=== PATIENT | female | born 1965 | race Caucasian/White ===

== ENCOUNTER → 2016-09-28 | Outpatient (CLI) | payer MEDICARE ==
[2016-09-28 13:10] LABS: Blood Urea Nitrogen 17 mg/dL (7-17); Non-African American GFR(MDRD) >60 (>60 ml/min/1.73 sqM)
== END | disposition home or self-care (01) ==
LOC: LABWHC1 12:39
PROVIDERS: ATTEND Psychiatry & Neurology Pain Medicine
DX: R41.3 Other amnesia (principal)
CPT/HCPCS: 36415; 82565; 84520

== ENCOUNTER → 2017-02-08 | Outpatient (CLI) | payer MEDICARE | END | disposition home or self-care (01) | LOC: LABWHC1 12:38 | PROVIDERS: ATTEND Internal Medicine | DX: E04.2 Nontoxic multinodular goiter (principal); R73.9 Hyperglycemia, unspecified | CPT/HCPCS: 36415; 83036; 84439; 84443 ==

== ENCOUNTER → 2017-03-09 | Outpatient (CLI) | payer MEDICARE ==
--- NOTE | 2017-03-09 11:56 | US ---
EXAMINATION TYPE: US thyroid st tissue head/neck DATE OF EXAM: 03/09/2017 COMPARISON: US 2015 CLINICAL HISTORY: E04.2 Nontoxic Multinodular Goiter. GLAND SIZE: Right Lobe: 6.1 x 3.5 x 2.1 cm Overall Parenchyma: homogenous Left Lobe: 5.0 x 2.0 x 1.5 cm Overall Parenchyma: homogeneous Isthmus Thickness: 0.3 cm NODULES RIGHT: # of nodules measured on right: 1 1. 3.7 X 2.4 x 2.0 cm isoechoic nodule at the mid and lower pole with well-defined margins; . This nodule is wider than tall and shows no intranodular vascularity. Prior size: 3.5 x 2.1 x 3.5 cm LEFT: # of nodules measured on the left: 2 1. 0.7 X 0.7 x 0.6 cm hypoechoic mixed nodule at the mid medial pole with well-defined margins; in terrupted peripheral calcification. This nodule is wider than tall and shows no intranodular vascula rity. Prior size: 0.9 x 0.5 x 0.8 cm 2. 0.7 X 0.6 x 0.6 cm hypoechoic mixed nodule at the mid lower pole with poorly defined margins; . This nodule is wide as is tall and shows no intranodular vascularity. Prior size: 0.7 x 0.4 x 0.6 cm ISTHMUS: no nodules seen at isthmus Bilateral neck scanned, no evidence of lymphadenopathy. IMPRESSION: 1. Multinodular goiter 2. No suspicious enlarging nodules.
== END | disposition home or self-care (01) ==
LOC: RADUSWWP 10:57
PROVIDERS: ATTEND Internal Medicine
DX: E04.2 Nontoxic multinodular goiter (principal)
CPT/HCPCS: 76536

== ENCOUNTER → 2017-11-15 | Outpatient (CLI) | payer MEDICARE ==
[2017-11-15 13:38] LABS: ALT 30 U/L (9-52); AST 32 U/L (14-36); Albumin 3.5 g/dL (3.5-5.0); Alkaline Phosphatase 78 U/L (38-126); Anion Gap 11 mmol/L; Blood Urea Nitrogen 23 mg/dL (7-17); Carbon Dioxide 26 mmol/L (22-30); Chloride 103 mmol/L (98-107); Glucose 147 mg/dL (74-99); Potassium 4.4 mmol/L (3.5-5.1); Sodium 140 mmol/L (137-145); Total Bilirubin 0.3 mg/dL (0.2-1.3); Total Protein 6.5 g/dL (6.3-8.2)
[2017-11-15 13:56] LABS: T4, Free (Free Thyroxine) 0.92 ng/dL (0.78-2.19)
[2017-11-15 14:03] LABS: Appearance,Urine Clear (Clear); Bilirubin,Urine Negative (Negative); Blood,Urine Negative (Negative); Color,Urine Yellow; Glucose,Urine (UA) Negative (Negative); Ketones,Urine Negative (Negative); Leukocyte Esterase,Urine Negative (Negative); Nitrite,Urine Negative (Negative); Protein,Urine Trace (Negative); Specific Gravity,Urine 1.023 (1.001-1.035); Urobilinogen,Urine <2.0 mg/dL (<2.0)
[2017-11-15 18:34] LABS: Vitamin D 25 Hydroxy 26.3 ng/mL (30.0-100.0)
[2017-11-15 19:48] LABS: Parathyroid Hormone Intact 67.5 pg/mL (14.0-72.0)
== END | disposition home or self-care (01) ==
LOC: LABWHC1 12:35
PROVIDERS: ATTEND Internal Medicine Infectious Disease
DX: N39.0 Urinary tract infection, site not specified (principal); E55.9 Vitamin D deficiency, unspecified; M81.0 Age-related osteoporosis without current pathological fracture; R94.6 Abnormal results of thyroid function studies
CPT/HCPCS: 36415; 80053; 81003; 82306; 83970; 84439; 84443; 84481; 87086

== ENCOUNTER 2018-05-17 22:40 | Observation (INO) | payer MEDICARE ==
[2018-05-17 23:45] LABS: Basophils % (A) 0 %; Eosinophils % (A) 1 %; HCT 40.7 % (34.0-46.0); HGB 13.2 gm/dL (11.4-16.0); Lymphocytes # (A) 1.3 k/uL (1.0-4.8); Lymphocytes % (A) 21 %; MCH 28.9 pg (25.0-35.0); MCHC 32.3 g/dL (31.0-37.0); MCV 89.5 fL (80.0-100.0); Mean Platelet Volume 6.8; Monocytes # (A) 0.5 k/uL (0-1.0); Monocytes % (A) 7 %; Neutrophils # (A) 4.3 k/uL (1.3-7.7); Neutrophils % (A) 68 %; Platelet Count 295 k/uL (150-450); RBC 4.55 m/uL (3.80-5.40); RDW 14.4 % (11.5-15.5); WBC 6.3 k/uL (3.8-10.6)
--- NOTE | 2018-05-17 23:50 | XR ---
EXAMINATION TYPE: XR chest 2V DATE OF EXAM: 05/17/2018 COMPARISON: 06/21/2016 HISTORY: Atrial fibrillation chest pain TECHNIQUE: Frontal and lateral views of the chest are obtained. FINDINGS: There is poor aspiration. There is coarsening of the lung markings. I see no definite hear t failure. Costophrenic angles are clear. Heart size is normal. There are chest leads. IMPRESSION: Coarse lung markings related to poor inspiration. No heart failure or pulmonary consolid ation. Inspiration is decreased compared to last exam.
[2018-05-17 23:57] LABS: Partial Thromboplastin Time 23.7 sec (22.0-30.0); Prothrombin Time 9.6 sec (9.0-12.0)
[2018-05-17 23:59] LABS: ALT 30 U/L (9-52); AST 36 U/L (14-36); Albumin 3.7 g/dL (3.5-5.0); Alkaline Phosphatase 80 U/L (38-126); Anion Gap 7 mmol/L; Blood Urea Nitrogen 12 mg/dL (7-17); Carbon Dioxide 24 mmol/L (22-30); Chloride 110 mmol/L (98-107); Glucose 106 mg/dL (74-99); Lipase 159 U/L (23-300); Magnesium 2.4 mg/dL (1.6-2.3); Potassium 4.3 mmol/L (3.5-5.1); Sodium 141 mmol/L (137-145); Total Bilirubin 0.3 mg/dL (0.2-1.3); Total Protein 6.7 g/dL (6.3-8.2)
[2018-05-18 00:09] LABS: Creatine Kinase 289 U/L (30-135)
[2018-05-18 00:21] LABS: Creatine Kinase MB 3.4 ng/mL (0.0-2.4)
[2018-05-18 00:22] LABS: Troponin I <0.012 ng/mL (0.000-0.034)
[2018-05-18] MEDS ORDERED: ASPIRIN 81 MG PO STA (00:33)
[2018-05-18] MEDS ORDERED: NITROGLYCERIN SL TABS 0.4 MG TAB SUBLINGUAL PRN (00:33)
[2018-05-18] MEDS ORDERED: HEPARIN SODIUM,PORCINE 5,000 UNIT/ML 1 ML VIAL IV ONE (00:33)
[2018-05-18] MEDS ORDERED: HEPARIN SODIUM,PORCINE 5,000 UNIT/ML 1 ML VIAL IV PRN (00:33)
--- NOTE | 2018-05-18 00:33 | ED ---
Chest Pain HPI - General Chief Complaint: Chest Pain Stated Complaint: chest pain Time Seen by Provider: 05/17/18 22:54 Source: patient, EMS, RN notes reviewed, old records reviewed Limitations: no limitations - History of Present Illness Initial Comments: This is a 32-year-old female the ER for evasive chest pain. Patient has significant medical history multiple medical conditions including heart disease or heart disease risk factors. did take nitro with no help. Patient still complaining of left-sided chest. No radiation. No nausea no vomiting. No fevers no cough or congestion. No recent travel history no known sick contacts. Patient has history of multiple hospitalizations for same. Patient is also experiencing significant increasing exertional dyspnea. MD Complaint: chest pain -: hour(s) (Pain is been getting worse throughout the day and shortness of breath worse throughout the day but symptoms going on for almost a week) Onset: during rest, during exertion Pain Location: substernal, left chest Pain Radiation: none Severity: moderate Severity scale (1-10): 4 Quality: tightness, heaviness Consistency: constant Improves With: nothing Worsens With: exertion Anginal Symptoms: dyspnea Treatments Prior to Arrival: none - Related Data Home Medications Medication Instructions Recorded Confirmed Metoprolol Tartrate [Lopressor] 25 mg PO DAILY 01/09/14 05/17/18 predniSONE 10 mg PO DAILY 04/05/16 05/17/18 Baclofen 10 mg PO TID 06/21/16 05/17/18 Docusate [Colace] 100 mg PO DAILY PRN 06/21/16 05/17/18 Nitroglycerin Sl Tabs [Nitrostat] 0.4 mg PO Q5M PRN 06/21/16 05/17/18 lamoTRIgine [LaMICtal] 100 mg PO HS 06/21/16 05/17/18 Nystatin 100,000 Unit/ml Susp 4 ml PO QID 09/07/16 05/17/18 [Mycostatin Oral Susp] oxyCODONE ER [OxyCONTIN 20MG E.R] 20 mg PO Q12HR PRN 09/07/16 05/17/18 Albuterol Sulfate [Proventil Hfa] 1 - 2 puff INHALATION RT-Q6H PRN 12/07/1604/26 Beclomethasone Dip 80 Mcg/Puff 1 puff INHALATION DAILY 12/07/16 05/17/18 [Qvar 80 mcg] Ranitidine HCl [Zantac] 150 mg PO BID PRN 12/07/16 05/17/18 LORazepam [Ativan] 0.5 mg PO TID PRN 04/23/17 05/17/18 Naloxegol Oxalate [Movantik] 6 mg PO ONCE 06/01/17 05/17/18 Acetaminophen [Tylenol] 1,000 mg PO Q4-6H PRN 05/17/18 05/17/18 Citalopram Hydrobromide [CeleXA] 40 mg PO DAILY 05/17/18 05/17/18 diphenhydrAMINE [Benadryl] 50 mg PO DAILY PRN 05/17/18 05/17/18 Previous Rx's Medication Instructions Recorded QUEtiapine [SEROquel] 400 mg PO HS tab 09/03/15 HYDROcodone/APAP 7.5-325MG [[place] 1 tab PO BID PRN #28 tab 06/24/16 7.5-325] Allergies Allergy/AdvReac Type Severity Reaction Status Date / Time Anesthetics - Jocelyn Type- Allergy Unknown Verified 05/17/18 23:26 Parabens [Anesthetics - Jocelyn Type] bumetanide [From Bumex] Allergy Rash/Hives Verified 05/17/18 23:26 Cephalosporins Allergy Rash/Hives Verified 05/17/18 23:26 clindamycin Allergy Rash/Hives Verified 05/17/18 23:26 diphenhydramine Allergy Rash/Hives Verified 05/17/18 23:26 [From Benadryl] doxycycline Allergy Anaphylaxis Verified 05/17/18 23:26 egg Allergy Anaphylaxis Verified 05/17/18 23:26 furosemide [From Lasix] Allergy Rash/Hives Verified 05/17/18 23:26 hydrochlorothiazide Allergy Rash/Hives Verified 05/17/18 23:26 influenza virus vaccine, Allergy Anaphylaxis Verified 05/17/18 23:26 specific [Influenza Virus Vacc,Specific] Latex, Natural Rubber Allergy Anaphylaxis Verified 05/17/18 23:26 levofloxacin [From Levaquin] Allergy Anaphylaxis Verified 05/17/18 23:26 NSAIDS (Non-Steroidal Allergy Rash/Hives Verified 05/17/18 23:26 Anti-Inflamma Penicillins Allergy Anaphylaxis Verified 05/17/18 23:26 pneumococcal 23-valent Allergy Anaphylaxis Verified 05/17/18 23:26 polysacchari [From Pneumovax 23] propoxyphene HCl Allergy Rash/Hives Verified 05/17/18 23:26 [From Darvon] Sulfa (Sulfonamide Allergy Anaphylaxis Verified 05/17/18 23:26 Antibiotics) torsemide [From Demadex] Allergy Rash/Hives Verified 05/17/18 23:26 tramadol HCl [From Ultram] Allergy Rash/Hives Verified 05/17/18 23:26 triamterene [From Dyazide] Allergy Anaphylaxis Verified 05/17/18 23:26 vancomycin Allergy Rash/Hives Verified 05/17/18 23:26 adhesive AdvReac Rash/Hives Verified 05/17/18 23:26 formoterol [Formoterol] AdvReac Unknown Verified 05/17/18 23:26 Macrolide Antibiotics AdvReac Nausea & Verified 05/17/18 23:26 Vomiting Milk Containing Products AdvReac Rash/Hives Verified 05/17/18 23:26 pregabalin [From Lyrica] AdvReac Hallucinati Verified 05/17/18 23:26 ons propofol AdvReac Unknown Verified 05/17/18 23:26 metals AdvReac Unknown Uncoded 04/19/18 11:08 Review of Systems ROS Statement: Those systems with pertinent positive or pertinent negative responses have been documented in the HPI. ROS Other: All systems not noted in ROS Statement are negative. EKG Findings - EKG Comments: EKG Findings:: EKG shows normal sinus rhythm rate of 92, FL 150, QRS 84, QTC 487 Past Medical History Past Medical History: Atrial Fibrillation, Asthma, Chest Pain / Angina, COPD, CVA/TIA, Dementia, Diabetes Mellitus, Deep Vein Thrombosis (DVT), Eye Disorder, Fibromyalgia, GERD/Reflux, GI Bleed, Hyperlipidemia, Hypertension, Memory Impairment, Myocardial Infarction ([place]), Neurologic Disorder, Skin Disorder, Sleep Apnea/CPAP/BIPAP, Syncope, Vascular Disorder Additional Past Medical History / Comment(s): VERTIBRAL FX T-12/L1-L5/ILIAC FX BILAT PARTIALLY HEALED/VASCULITIS/IRRITABLE BOWEL SYNDROME/CELLULITIS TO ARMS, Lupus, BILATERAL CATARACTS 2014 LEFT SHOULDER AVASCULOAR NECROSIS, osteoporois , CVID ON IVIG infusions, osteomyelitis L1. Aseptic necrosis - right femoral head Brain lesion and old bleed MRI - Winter 2016. FUNGAL FOOT NAILBED INFECTION. TOOTH INFECTION AND VAGINAL YEAST INFECTION. Last Myocardial Infarction Date:: 1989 History of Any Multi-Drug Resistant Organisms: MRSA, VRE Date of last positivie culture/infection: 01/28/16 MDRO Source:: URINE Past Surgical History: Adenoidectomy, Ear Surgery, Heart Catheterization, Hernia Repair, Orthopedic Surgery, Tonsillectomy Additional Past Surgical History / Comment(s): NIYAH FILTER. SINUS SURGERY. Past Anesthesia/Blood Transfusion Reactions: Motion Sickness, Postoperative Nausea & Vomiting (PONV) Past Psychological History: Anxiety, Bipolar, Depression, PTSD Smoking Status: Never smoker Past Alcohol Use History: None Reported Past Drug Use History: Prescription Drug Abuse - Past Family History Mother Family Medical History: Hypertension, Thyroid Disorder Father Family Medical History: Myocardial Infarction ([place]) Additional Family Medical History / Comment(s): significant other states father of heart attack, and had other heart problems General Exam Limitations: no limitations General appearance: alert, in no apparent distress Head exam: Present: atraumatic, normocephalic, normal inspection Eye exam: Present: normal appearance, PERRL, EOMI. Absent: scleral icterus, conjunctival injection, periorbital swelling ENT exam: Present: normal exam, mucous membranes moist Neck exam: Present: normal inspection. Absent: tenderness, meningismus, lymphadenopathy Respiratory exam: Present: normal lung sounds bilaterally. Absent: respiratory distress, wheezes, rales, rhonchi, stridor Cardiovascular Exam: Present: regular rate, normal rhythm, normal heart sounds. Absent: systolic murmur, diastolic murmur, rubs, gallop, clicks GI/Abdominal exam: Present: soft, normal bowel sounds. Absent: distended, tenderness, guarding, rebound, rigid Extremities exam: Present: normal inspection, full ROM, normal capillary refill. Absent: tenderness, pedal edema, joint swelling, calf tenderness Back exam: Present: normal inspection Neurological exam: Present: alert, oriented X3, CN II-XII intact Psychiatric exam: Present: normal affect, normal mood Skin exam: Present: warm, dry, intact, normal color. Absent: rash Course Vital Signs 05/17/18 22:40 Temperature 99.4 F Pulse Rate 89 Respiratory 16 Rate Blood Pressure 130/81 O2 Sat by Pulse 100 Oximetry - Reevaluation(s) Reevaluation #1: 10/10/18 00:31 Medical records thoroughly reviewed, Reevaluation #2: 05/18/18 00:31 Patient still complaining of chest pain here in the ER Reevaluation #3: 05/18/18 00:32 Studies Chest x-rays negative for significant acute disease, increased only rest or congestion or increased lung markings Chest Pain MDM - MDM 52 female the ER for evaluation of chest pain not relieved by nitro does have significant medical history with multiple cardiac Camacho's. Will be admitted for cardiac evaluation and treatment Critical Care Time Critical Care Time: Yes Total Critical Care Time: 31 Disposition Clinical Impression: Chest pain Disposition: ADMITTED IP TO THIS HOSP Condition: Undetermined Instructions: Chest Pain (ED) Is patient prescribed a controlled substance at d/c from ED?: No Referrals: Eulalio Acosta MD [Primary Care Provider] - 1-2 days
[2018-05-18] MEDS ORDERED: SODIUM CHLORIDE 0.9% 1,000 ML IV SCH (00:45)
[2018-05-18] MEDS ORDERED: HEPARIN SOD,PORK IN 0.45% NACL 25,000 UNIT in 0.45% NACL 1 500ML.BAG IV SCH (00:45)
[2018-05-18 02:04] VITALS: BMI 33.9
[2018-05-18 07:03] LABS: Glucose,Whole Blood 100 mg/dL (75-99)
[2018-05-18 08:11] VITALS: RESP 18
[2018-05-18] MEDS ORDERED: LORazepam 0.5 MG TAB PO PRN (08:31)
[2018-05-18] MEDS ORDERED: DOCUSATE 100 MG CAP PO PRN (08:31)
[2018-05-18] MEDS ORDERED: ACETAMINOPHEN TAB 500 MG TAB PO PRN (08:31)
[2018-05-18] MEDS ORDERED: ALBUTEROL NEBULIZED 2.5 MG/3 ML INHALATION PRN (08:31)
[2018-05-18] MEDS ORDERED: oxyCODONE ER 20 MG TAB.ER.12H PO PRN (08:31)
[2018-05-18] MEDS ORDERED: FAMOTIDINE 20 MG TAB PO PRN (08:31)
[2018-05-18] MEDS ORDERED: HYDROcodone/APAP 7.5-325MG 1 EACH TAB PO PRN (08:31)
[2018-05-18] MEDS ORDERED: predniSONE 10 MG TAB PO SCH (09:00)
[2018-05-18] MEDS ORDERED: METOPROLOL TARTRATE 25 MG TAB PO SCH (09:00)
[2018-05-18] MEDS ORDERED: BACLOFEN 10 MG TAB PO SCH (09:00)
[2018-05-18] MEDS ORDERED: ATORVASTATIN 80 MG TAB PO SCH (09:00)
[2018-05-18] MEDS ORDERED: CITALOPRAM HYDROBROMIDE 20 MG TAB PO SCH (09:00)
[2018-05-18 10:43] LABS: Mean Platelet Volume 8.3; Platelet Count 261 k/uL (150-450)
[2018-05-18] MEDS: NYSTATIN 100,000 UNIT/ML SUSP 500,000 UNIT/5 ML CUP PO SCH ×2 (11:12→13:39)
[2018-05-18 11:39] LABS: Creatine Kinase 186 U/L (30-135)
[2018-05-18 11:53] LABS: Creatine Kinase MB 2.1 ng/mL (0.0-2.4); Troponin I <0.012 ng/mL (0.000-0.034)
[2018-05-18 12:04] LABS: Creatine Kinase 192 U/L (30-135)
[2018-05-18 12:08] VITALS: BP 110/62; PULSE 80; TEMP 97.6
[2018-05-18 12:17] LABS: Troponin I <0.012 ng/mL (0.000-0.034)
[2018-05-18 12:17] LABS: Glucose,Whole Blood 239 mg/dL (75-99)
--- NOTE | 2018-05-18 13:52 | P.CRDCN ---
History of Present Illness History of present illness: Ms. Leung is a pleasant 52-year-old female past medical history significant for hypertension, dyslipidemia, diabetes mellitus, infective endocarditis 2016, COPD and CVA. She denies history of coronary artery disease. She has followed with Dr. Ronquillo in the past. We have been asked to see her in consultation for chest pain. She states 2 days ago she started coughing very had and intensely. The coughing was causing significant pain in her chest and shortness of breath. She was tolerating this at home until last night when the coughing and the tightness in her chest became unbearable. She states she has nitroglycerin at home and took 3 doses which took away the tightness in her chest but it came back after approximately 40 minutes. Upon arrival to ED she was still having chest tightness. The tightness ultimately went away shortly thereafter on its own. There was mild radiation to the mid upper back between her shoulder blades. She denies pain in the arm, neck or jaw. She denies associated dizziness, palpitations, diaphoresis or nausea. EKG revels sinus mechanism with poor R-wave progression. Consistent with old EKG in the office. No acute changes. Chest xray reveals course lung markings related to poor inspiration. No acute heart failure or pulmonary consolidation noted. Laboratory data reviewed, hgb 13.2, plt 261, sodium 141, potassium 4.3, magnesium 2.4, creatinine 0.62, cardiac enzymes negative x3, NTproBNP 252. Current cardiac medications include lopressor 25 mg daily. She also takes oxycontin, lamictal, seroquel, movantikm ativan, norco, celexa, baclofen and albuterol. Most recent lexiscan stress test in the office 2015 negative for reversible cardiac ischemic changes. Most recent echocardiogram from 2016 reveals preserved LV systolic function with EF 55-60%, mildly thickened mitral valve leaflets and mild TR. Review of Systems At the time of my exam: CONSTITUTIONAL: Denies fever. Denies chills. EYES: Denies blurred vision. Denies vision changes. Denies eye pain. EARS, NOSE, MOUTH & THROAT: Denies headache. Denies sore throat. Denies ear pain. CARDIOVASCULAR: Denies chest pain. Denies shortness of breath. Denies orthopnea. Denies PND. Denies palpitations. RESPIRATORY: complains of cough. GASTROINTESTINAL: Denies abdominal pain. Denies diarrhea. Denies constipation. Denies nausea. Denies vomiting. MUSCULOSKELETAL: Denies myalgias. INTEGUMENTARY: Denies pruitis. Denies rash. NEUROLOGIC: Denies numbness. Denies tingling. Denies weakness. PSYCHIATRIC: Denies anxiety. Denies depression. ENDOCRINE: Denies fatigue. Denies weight change. Denies polydipsia. Denies polyurina. GENITOURINARY: Denies burning, hematuria or urgency with micturation. HEMATOLOGIC: Denies history of anemia. Denies bleeding. Past Medical History Past Medical History: Atrial Fibrillation, Asthma, Chest Pain / Angina, COPD, CVA/TIA, Dementia, Diabetes Mellitus, Deep Vein Thrombosis (DVT), Eye Disorder, Fibromyalgia, GERD/Reflux, GI Bleed, Hyperlipidemia, Hypertension, Memory Impairment, Myocardial Infarction ([place]), Neurologic Disorder, Skin Disorder, Sleep Apnea/CPAP/BIPAP, Syncope, Vascular Disorder Additional Past Medical History / Comment(s): VERTIBRAL FX T-12/L1-L5/ILIAC FX BILAT PARTIALLY HEALED/VASCULITIS/IRRITABLE BOWEL SYNDROME/CELLULITIS TO ARMS, Lupus, BILATERAL CATARACTS 2014 LEFT SHOULDER AVASCULOAR NECROSIS, osteoporois , CVID ON IVIG infusions, osteomyelitis L1. Aseptic necrosis - right femoral head Brain lesion and old bleed MRI - Winter 2016. FUNGAL FOOT NAILBED INFECTION. TOOTH INFECTION AND VAGINAL YEAST INFECTION. Last Myocardial Infarction Date:: 1989 History of Any Multi-Drug Resistant Organisms: MRSA, VRE Date of last positivie culture/infection: 01/28/16 MDRO Source:: URINE Past Surgical History: Adenoidectomy, Ear Surgery, Heart Catheterization, Hernia Repair, Orthopedic Surgery, Tonsillectomy Additional Past Surgical History / Comment(s): NIYAH FILTER. SINUS SURGERY , right breast bx - benign Past Anesthesia/Blood Transfusion Reactions: Motion Sickness, Postoperative Nausea & Vomiting (PONV) Past Psychological History: Anxiety, Bipolar, Depression, PTSD Additional Psychological History / Comment(s): Patient sees Dr Garza on an outpatient basis. Previous history of inpatient mental health admission at [facility]. Smoking Status: Never smoker Past Alcohol Use History: None Reported Additional Past Alcohol Use History / Comment(s): . Past Drug Use History: Prescription Drug Abuse - Past Family History Mother Family Medical History: Hypertension, Thyroid Disorder Father Family Medical History: Myocardial Infarction ([place]) Additional Family Medical History / Comment(s): significant other states father of heart attack, and had other heart problems Medications and Allergies Home Medications Medication Instructions Recorded Confirmed Type Metoprolol Tartrate [Lopressor] 25 mg PO DAILY 01/09/14 05/17/18 History QUEtiapine [SEROquel] 400 mg PO HS tab 09/03/15 05/17/18 Rx predniSONE 10 mg PO DAILY 04/05/16 05/17/18 History Baclofen 10 mg PO TID 06/21/16 05/17/18 History Docusate [Colace] 100 mg PO DAILY PRN 06/21/16 05/17/18 History Nitroglycerin Sl Tabs [Nitrostat] 0.4 mg PO Q5M PRN 06/21/16 05/17/18 History lamoTRIgine [LaMICtal] 100 mg PO HS 06/21/16 05/17/18 History HYDROcodone/APAP 7.5-325MG [[place] 1 tab PO BID PRN #28 tab 06/24/16 05/17/18 Rx 7.5-325] Nystatin 100,000 Unit/ml Susp 4 ml PO QID 09/07/16 05/17/18 History [Mycostatin Oral Susp] oxyCODONE ER [OxyCONTIN 20MG E.R] 20 mg PO Q12HR PRN 09/07/16 05/17/18 History Albuterol Sulfate [Proventil Hfa] 1 - 2 puff INHALATION RT-Q6H PRN 12/07/1604/26 History Beclomethasone Dip 80 Mcg/Puff 1 puff INHALATION DAILY 12/07/16 05/17/18 History [Qvar 80 mcg] Ranitidine HCl [Zantac] 150 mg PO BID PRN 12/07/16 05/17/18 History LORazepam [Ativan] 0.5 mg PO TID PRN 04/23/17 05/17/18 History Naloxegol Oxalate [Movantik] 6 mg PO ONCE 06/01/17 05/17/18 History Acetaminophen [Tylenol] 1,000 mg PO Q4-6H PRN 05/17/18 05/17/18 History Citalopram Hydrobromide [CeleXA] 40 mg PO DAILY 05/17/18 05/17/18 History diphenhydrAMINE [Benadryl] 50 mg PO DAILY PRN 05/17/18 05/17/18 History Allergies Allergy/AdvReac Type Severity Reaction Status Date / Time Anesthetics - Jocelyn Type- Allergy Unknown Verified 05/17/18 23:26 Parabens [Anesthetics - Jocelyn Type] bumetanide [From Bumex] Allergy Rash/Hives Verified 05/17/18 23:26 Cephalosporins Allergy Rash/Hives Verified 05/17/18 23:26 clindamycin Allergy Rash/Hives Verified 05/17/18 23:26 diphenhydramine Allergy Rash/Hives Verified 05/17/18 23:26 [From Benadryl] doxycycline Allergy Anaphylaxis Verified 05/17/18 23:26 egg Allergy Anaphylaxis Verified 05/17/18 23:26 furosemide [From Lasix] Allergy Rash/Hives Verified 05/17/18 23:26 hydrochlorothiazide Allergy Rash/Hives Verified 05/17/18 23:26 influenza virus vaccine, Allergy Anaphylaxis Verified 05/17/18 23:26 specific [Influenza Virus Vacc,Specific] Latex, Natural Rubber Allergy Anaphylaxis Verified 05/17/18 23:26 levofloxacin [From Levaquin] Allergy Anaphylaxis Verified 05/17/18 23:26 NSAIDS (Non-Steroidal Allergy Rash/Hives Verified 05/17/18 23:26 Anti-Inflamma Penicillins Allergy Anaphylaxis Verified 05/17/18 23:26 pneumococcal 23-valent Allergy Anaphylaxis Verified 05/17/18 23:26 polysacchari [From Pneumovax 23] propoxyphene HCl Allergy Rash/Hives Verified 05/17/18 23:26 [From Darvon] Sulfa (Sulfonamide Allergy Anaphylaxis Verified 05/17/18 23:26 Antibiotics) torsemide [From Demadex] Allergy Rash/Hives Verified 05/17/18 23:26 tramadol HCl [From Ultram] Allergy Rash/Hives Verified 05/17/18 23:26 triamterene [From Dyazide] Allergy Anaphylaxis Verified 05/17/18 23:26 vancomycin Allergy Rash/Hives Verified 05/17/18 23:26 adhesive AdvReac Rash/Hives Verified 05/17/18 23:26 aspirin AdvReac Rash/Hives Verified 05/18/18 02:43 formoterol [Formoterol] AdvReac Unknown Verified 05/17/18 23:26 Macrolide Antibiotics AdvReac Nausea & Verified 05/17/18 23:26 Vomiting Milk Containing Products AdvReac Rash/Hives Verified 05/17/18 23:26 pregabalin [From Lyrica] AdvReac Hallucinati Verified 05/17/18 23:26 ons propofol AdvReac Unknown Verified 05/17/18 23:26 metals AdvReac Unknown Uncoded 04/19/18 11:08 Physical Exam Vitals: Vital Signs Temp Pulse Pulse Resp BP BP BP 05/18/18 07:36 05/18/18 07:25 97.7 F 60 18 135/80 05/18/18 04:41 97.4 F L 62 16 128/82 05/18/18 02:21 15 05/18/18 01:35 97.4 F L 63 15 124/74 05/18/18 01:00 98.0 F 68 16 116/70 05/17/18 22:40 99.4 F 89 16 130/81 Pulse Ox 05/18/18 07:36 96 05/18/18 07:25 95 05/18/18 04:41 05/18/18 02:21 05/18/18 01:35 91 L 05/18/18 01:00 100 05/17/18 22:40 100 Intake and Output 05/17/18 05/18/18 05/18/18 22:59 06:59 14:59 Intake Total 180 Balance 180 Intake: Oral 180 Other: Voiding Method Toilet # Voids 2 Weight 95.254 kg 95.254 kg Blood pressure 110/62 heart rate 80 afebrile maintaining oxygen saturation on room air. GENERAL: This is a 52-year-old female in no apparent distress at the time of my examination. Obese. HEENT: Head is atraumatic, normocephalic. Pupils are equal, round. Sclerae anicteric. Conjunctivae are clear. Mucous membranes of the mouth are moist. Neck is supple. There is no jugular venous distention. No carotid bruit is heard. LUNGS: Clear to auscultation no wheezes, rales or rhonchi. No chest wall tenderness is noted on palpation or with deep breathing. HEART: Regular rate and rhythm without murmurs, rubs or gallops. S1 and S2 heard. ABDOMEN: Soft, nontender. Bowel sounds are heard. No organomegaly noted. EXTREMITIES: Trace bilateral lower extremity non-pitting edema and no calf tenderness noted. VASCULAR: Radial and dorsalis pedis pulses palpated, no evidence of clubbing. NEUROLOGIC: Patient is awake, alert and oriented x3. Results 05/18/18 09:36 05/17/18 23:30 Cardiac Enzymes 05/17/18 05/17/18 Range/Units 23:30 23:30 AST 36 (14-36) U/L CK-MB (CK-2) 3.4 H (0.0-2.4) ng/mL Troponin I <0.012 (0.000-0.034) ng/mL Coagulation 05/17/18 Range/Units 23:30 PT 9.6 (9.0-12.0) sec APTT 23.7 (22.0-30.0) sec CBC 05/17/18 Range/Units 23:30 WBC 6.3 (3.8-10.6) k/uL RBC 4.55 (3.80-5.40) m/uL Hgb 13.2 (11.4-16.0) gm/dL Hct 40.7 (34.0-46.0) % Plt Count 295 (150-450) k/uL Comprehensive Metabolic Panel 05/17/18 Range/Units 23:30 Sodium 141 (137-145) mmol/L Potassium 4.3 (3.5-5.1) mmol/L Chloride 110 H (98-107) mmol/L Carbon Dioxide 24 (22-30) mmol/L BUN 12 (7-17) mg/dL Creatinine 0.62 (0.52-1.04) mg/dL Glucose 106 H (74-99) mg/dL Calcium 9.0 (8.4-10.2) mg/dL AST 36 (14-36) U/L ALT 30 (9-52) U/L Alkaline Phosphatase 80 (38-126) U/L Total Protein 6.7 (6.3-8.2) g/dL Albumin 3.7 (3.5-5.0) g/dL Current Medications Generic Name Dose Route Start Last Admin Trade Name Freq PRN Reason Stop Dose Admin Atorvastatin Calcium 80 mg 05/18/18 09:00 Lipitor PO DAILY NESS Heparin Sodium (Porcine) 0 unit 05/18/18 00:33 Heparin IV Q6HR PRN Low PTT Protocol Heparin Sodium/Sodium Chloride 500 mls @ 19.05 mls/hr 05/18/18 00:45 01:11 25,000 unit/ Sodium Chloride IV 10 units/kg/hr .Q24H NESS 19.05 mls/hr Administration Protocol 10 UNITS/KG/HR Sodium Chloride 1,000 mls @ 100 mls/hr 05/18/18 00:45 05/18/18 01:07 Saline 0.9% IV 100 mls/hr .Q10H NESS Administration Nitroglycerin 0.4 mg 05/18/18 00:33 Nitrostat SUBLINGUAL Q5M PRN Chest Pain Intake and Output 05/17/18 05/18/18 05/18/18 22:59 06:59 14:59 Intake Total 180 Balance 180 Intake: Oral 180 Other: Voiding Method Toilet # Voids 2 Weight 95.254 kg 95.254 kg 05/17/18 23:30 05/17/18 23:30 Assessment and Plan Assessment: ASSESSMENT Pleuritic chest pain with cough Hypertension Dyslipidemia Diabetes mellitus History of endocarditis 2016 PLAN An acute coronary event has been ruled out with no acute EKG changes and negative cardiac enzymes. Obtain 2D echocardiogram and doppler study to assess cardiac structure and function. Follow up with Dr. Ronquillo in 2-3 weeks. Will do an outpatient stress test once her coughing has cleared up. Thank you kindly for this consultation. Nurse Practitioner note has been reviewed, I agree with a documented findings and plan of care. Patient was seen and examined.
[2018-05-18] MEDS ORDERED: FLUTICASONE 110 MCG INHALER INHALATION SCH ×2 (14:37→20:00)
[2018-05-18] MEDS ORDERED: guaiFENesin SYRUP 100MG/5ML 200 MG/10 ML CUP PO PRN (14:46)
--- NOTE | 2018-05-18 15:35 | P.HPIM ---
History of Present Illness H&P Date: 05/18/18 This is a 52-year-old female patient of Dr. Acosta with past medical history CVID and has undergone IVIG infusions with Dr. 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 Patient complains of chest pain that goes across from both shoulders and around between her shoulder blades that started while she was in bed resting. She states it lasted for about 20 minutes. She also has significant cough. She came in to [facility] emergency center for evaluation underwent a chest x-ray that showed no acute findings. Troponins have been negative on 3 draws. EKG was sinus rhythm with no acute changes. Patient was started on heparin drip and nitroglycerin. Patient has ALLERGY to aspirin. She was placed on the observation unit and seen in consultation by cardiology. At the time of this evaluation, patient states her chest pain is substantially improved. Patient has been seen by cardiology and cleared for discharge. Patient will be discharged home today in stable condition. Echocardiogram has been obtained and report is pending at the time of discharge. Discharge Medication List Metoprolol Tartrate [Lopressor] 25 mg PO DAILY 01/09/14 [History] QUEtiapine [SEROquel] 400 mg PO HS tab 09/03/15 [Rx] predniSONE 10 mg PO DAILY 04/05/16 [History] Baclofen 10 mg PO TID 06/21/16 [History] Docusate [Colace] 100 mg PO DAILY PRN 06/21/16 [History] Nitroglycerin Sl Tabs [Nitrostat] 0.4 mg PO Q5M PRN 06/21/16 [History] lamoTRIgine [LaMICtal] 100 mg PO HS 06/21/16 [History] HYDROcodone/APAP 7.5-325MG [Seymour 7.5-325] 1 tab PO BID PRN #28 tab 06/24/16 [Rx ] Nystatin 100,000 Unit/ml Susp [Mycostatin Oral Susp] 4 ml PO QID 09/07/16 [ History] oxyCODONE ER [OxyCONTIN] 20 mg PO Q12HR PRN 09/07/16 [History] Albuterol Sulfate [Proventil Hfa] 1 - 2 puff INHALATION RT-Q6H PRN 12/07/16 [ History] Beclomethasone Dip 80 Mcg/Puff [Qvar 80 mcg] 1 puff INHALATION DAILY 12/07/16 [ History] Ranitidine HCl [Zantac] 150 mg PO BID PRN 12/07/16 [History] LORazepam [Ativan] 0.5 mg PO TID PRN 04/23/17 [History] Naloxegol Oxalate [Movantik] 6 mg PO ONCE 06/01/17 [History] Acetaminophen [Tylenol] 1,000 mg PO Q4-6H PRN 05/17/18 [History] Citalopram Hydrobromide [CeleXA] 40 mg PO DAILY 05/17/18 [History] diphenhydrAMINE [Benadryl] 50 mg PO DAILY PRN 05/17/18 [History] guaiFENesin SYRUP 100MG/5ML [Robitussin] 10 mg PO BID #1 bottle 05/18/18 [Rx] Review of Systems All systems: negative Constitutional: Denies chills, Denies fever, Denies poor appetite, Denies sweats Eyes: denies blurred vision, denies pain Ears, nose, mouth and throat: Denies headache, Denies sore throat, Denies vertigo Cardiovascular: Reports chest pain, Denies decreased exercise tolerance, Denies dyspnea on exertion, Denies edema, Denies leg edema, Denies lightheadedness, Denies shortness of breath, Denies syncope Respiratory: Denies cough, Denies cough with sputum, Denies dyspnea, Denies excessive sputum, Denies hemoptysis, Denies home oxygen, Denies wheezing Gastrointestinal: Denies abdominal pain, Denies diarrhea, Denies nausea, Denies vomiting Genitourinary: Denies dysuria, Denies hematuria Musculoskeletal: Denies myalgias Integumentary: Denies pruritus, Denies rash Neurological: Denies numbness, Denies weakness Psychiatric: Denies anxiety, Denies depression Endocrine: Denies fatigue, Denies weight change Past Medical History Past Medical History: Atrial Fibrillation, Asthma, Chest Pain / Angina, COPD, CVA/TIA, Dementia, Diabetes Mellitus, Deep Vein Thrombosis (DVT), Eye Disorder, Fibromyalgia, GERD/Reflux, GI Bleed, Hyperlipidemia, Hypertension, Memory Impairment, Myocardial Infarction ([place]), Neurologic Disorder, Skin Disorder, Sleep Apnea/CPAP/BIPAP, Syncope, Vascular Disorder Additional Past Medical History / Comment(s): VERTIBRAL FX T-12/L1-L5/ILIAC FX BILAT PARTIALLY HEALED/VASCULITIS/IRRITABLE BOWEL SYNDROME/CELLULITIS TO ARMS, Lupus, BILATERAL CATARACTS 2014 LEFT SHOULDER AVASCULOAR NECROSIS, osteoporois , CVID ON IVIG infusions, osteomyelitis L1. Aseptic necrosis - right femoral head Brain lesion and old bleed MRI - Winter 2016. FUNGAL FOOT NAILBED INFECTION. TOOTH INFECTION AND VAGINAL YEAST INFECTION. Last Myocardial Infarction Date:: 1989 History of Any Multi-Drug Resistant Organisms: MRSA, VRE Date of last positivie culture/infection: 01/28/16 MDRO Source:: URINE Past Surgical History: Adenoidectomy, Ear Surgery, Heart Catheterization, Hernia Repair, Orthopedic Surgery, Tonsillectomy Additional Past Surgical History / Comment(s): NIYAH FILTER. SINUS SURGERY , right breast bx - benign Past Anesthesia/Blood Transfusion Reactions: Motion Sickness, Postoperative Nausea & Vomiting (PONV) Past Psychological History: Anxiety, Bipolar, Depression, PTSD Additional Psychological History / Comment(s): Patient sees Dr Garza on an outpatient basis. Previous history of inpatient mental health admission at [facility]. Smoking Status: Never smoker Past Alcohol Use History: None Reported Additional Past Alcohol Use History / Comment(s): Patient has been at [facility] [place] in the past [facility]. Past Drug Use History: Prescription Drug Abuse - Past Family History Mother Family Medical History: Hypertension, Thyroid Disorder Father Family Medical History: Myocardial Infarction ([place]) Additional Family Medical History / Comment(s): significant other states father of heart attack, and had other heart problems Medications and Allergies Home Medications Medication Instructions Recorded Confirmed Type Metoprolol Tartrate [Lopressor] 25 mg PO DAILY 01/09/14 05/17/18 History QUEtiapine [SEROquel] 400 mg PO HS tab 09/03/15 05/17/18 Rx predniSONE 10 mg PO DAILY 04/05/16 05/17/18 History Baclofen 10 mg PO TID 06/21/16 05/17/18 History Docusate [Colace] 100 mg PO DAILY PRN 06/21/16 05/17/18 History Nitroglycerin Sl Tabs [Nitrostat] 0.4 mg PO Q5M PRN 06/21/16 05/17/18 History lamoTRIgine [LaMICtal] 100 mg PO HS 06/21/16 05/17/18 History HYDROcodone/APAP 7.5-325MG [Seymour 1 tab PO BID PRN #28 tab 06/24/16 05/17/18 Rx 7.5-325] Nystatin 100,000 Unit/ml Susp 4 ml PO QID 09/07/16 05/17/18 History [Mycostatin Oral Susp] oxyCODONE ER [OxyCONTIN] 20 mg PO Q12HR PRN 09/07/16 05/17/18 History Albuterol Sulfate [Proventil Hfa] 1 - 2 puff INHALATION RT-Q6H PRN 12/07/1604/26 History Beclomethasone Dip 80 Mcg/Puff 1 puff INHALATION DAILY 12/07/16 05/17/18 History [Qvar 80 mcg] Ranitidine HCl [Zantac] 150 mg PO BID PRN 12/07/16 05/17/18 History LORazepam [Ativan] 0.5 mg PO TID PRN 04/23/17 05/17/18 History Naloxegol Oxalate [Movantik] 6 mg PO ONCE 06/01/17 05/17/18 History Acetaminophen [Tylenol] 1,000 mg PO Q4-6H PRN 05/17/18 05/17/18 History Citalopram Hydrobromide [CeleXA] 40 mg PO DAILY 05/17/18 05/17/18 History diphenhydrAMINE [Benadryl] 50 mg PO DAILY PRN 05/17/18 05/17/18 History guaiFENesin SYRUP 100MG/5ML 10 mg PO BID #1 bottle 05/18/18 Rx [Robitussin] Allergies Allergy/AdvReac Type Severity Reaction Status Date / Time Anesthetics - Jocelyn Type- Allergy Unknown Verified 05/17/18 23:26 Parabens [Anesthetics - Jocelyn Type] bumetanide [From Bumex] Allergy Rash/Hives Verified 05/17/18 23:26 Cephalosporins Allergy Rash/Hives Verified 05/17/18 23:26 clindamycin Allergy Rash/Hives Verified 05/17/18 23:26 diphenhydramine Allergy Rash/Hives Verified 05/17/18 23:26 [From Benadryl] doxycycline Allergy Anaphylaxis Verified 05/17/18 23:26 egg Allergy Anaphylaxis Verified 05/17/18 23:26 furosemide [From Lasix] Allergy Rash/Hives Verified 05/17/18 23:26 hydrochlorothiazide Allergy Rash/Hives Verified 05/17/18 23:26 influenza virus vaccine, Allergy Anaphylaxis Verified 05/17/18 23:26 specific [Influenza Virus Vacc,Specific] Latex, Natural Rubber Allergy Anaphylaxis Verified 05/17/18 23:26 levofloxacin [From Levaquin] Allergy Anaphylaxis Verified 05/17/18 23:26 NSAIDS (Non-Steroidal Allergy Rash/Hives Verified 05/17/18 23:26 Anti-Inflamma Penicillins Allergy Anaphylaxis Verified 05/17/18 23:26 pneumococcal 23-valent Allergy Anaphylaxis Verified 05/17/18 23:26 polysacchari [From Pneumovax 23] propoxyphene HCl Allergy Rash/Hives Verified 05/17/18 23:26 [From Darvon] Sulfa (Sulfonamide Allergy Anaphylaxis Verified 05/17/18 23:26 Antibiotics) torsemide [From Demadex] Allergy Rash/Hives Verified 05/17/18 23:26 tramadol HCl [From Ultram] Allergy Rash/Hives Verified 05/17/18 23:26 triamterene [From Dyazide] Allergy Anaphylaxis Verified 05/17/18 23:26 vancomycin Allergy Rash/Hives Verified 05/17/18 23:26 adhesive AdvReac Rash/Hives Verified 05/17/18 23:26 aspirin AdvReac Rash/Hives Verified 05/18/18 02:43 formoterol [Formoterol] AdvReac Unknown Verified 05/17/18 23:26 Macrolide Antibiotics AdvReac Nausea & Verified 05/17/18 23:26 Vomiting Milk Containing Products AdvReac Rash/Hives Verified 05/17/18 23:26 pregabalin [From Lyrica] AdvReac Hallucinati Verified 05/17/18 23:26 ons propofol AdvReac Unknown Verified 05/17/18 23:26 metals AdvReac Unknown Uncoded 04/19/18 11:08 Physical Exam Vitals: Vital Signs Temp Pulse Pulse Resp BP BP BP 05/18/18 07:36 05/18/18 07:25 97.7 F 60 18 135/80 05/18/18 04:41 97.4 F L 62 16 128/82 05/18/18 02:21 15 05/18/18 01:35 97.4 F L 63 15 124/74 05/18/18 01:00 98.0 F 68 16 116/70 05/17/18 22:40 99.4 F 89 16 130/81 Pulse Ox 05/18/18 07:36 96 05/18/18 07:25 95 05/18/18 04:41 05/18/18 02:21 05/18/18 01:35 91 L 05/18/18 01:00 100 05/17/18 22:40 100 Intake and Output 05/17/18 05/18/18 05/18/18 22:59 06:59 14:59 Intake Total 180 Balance 180 Intake: Oral 180 Other: Voiding Method Toilet # Voids 2 Weight 95.254 kg 95.254 kg Gen: This is a 52-year-old female. She is in bed very talkative and appears to be comfortable. No respiratory distress noted. HEENT: Head is atraumatic, normocephalic. Pupils equal, round. Sclerae is anicteric. NECK: Supple. No JVD. No lymphadenopathy. No thyromegaly. LUNGS: Clear to auscultation. No wheezes or rhonchi. No intercostal retractions. HEART: Regular rate and rhythm. No murmur. ABDOMEN: Soft. Bowel sounds are present. No tenderness. No rebound. EXTREMITIES: No pedal edema. No calf tenderness. NEUROLOGICAL: Patient is awake, alert and oriented x3. Cranial nerves 2 through 12 are grossly intact. Results CBC & Chem 7: 05/18/18 09:36 05/17/18 23:30 Labs: Abnormal Lab Results - Last 24 Hours (Table) 05/17/18 05/17/18 05/18/18 Range/Units 23:30 23:30 06:55 Chloride 110 H (98-107) mmol/L Glucose 106 H (74-99) mg/dL POC Glucose (mg/dL) 100 H (75-99) mg/dL Magnesium 2.4 H (1.6-2.3) mg/dL Total Creatine Kinase 289 H (30-135) U/L CK-MB (CK-2) 3.4 H (0.0-2.4) ng/mL Thrombosis Risk Factor Assmnt - Choose All That Apply Each Factor Represents 1 point: Abnormal pulmonary function (COPD), Age 41-60 years, Obesity (BMI >25) Each Risk Factor Represents 3 Points: History of DVT/PE Thrombosis Risk Factor Assessment Total Risk Factor Score: 6 Thrombosis Risk Factor Assessment Level: High Risk Assessment and Plan Plan: 1. Musculoskeletal chest pain. 2. Hypertension 3. 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 4. 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 Aviles. 5.. History of bacteremia with MRSA January 2016. 6. History of discitis, T12-L1 and endocarditis. 7. Chronic pain syndrome. 8. History of SLE on chronic prednisone. Currently being weaned by Dr. Max Iniguez 9. History of bipolar disorder Patient placed on the observation unit Discharge plan: Home Impression and plan of care have been directed as dictated by the signing physician. Neeta Francis nurse practitioner acting as scribe for signing physician.
--- NOTE | 2018-05-18 19:52 | ECHOF ---
Referral Reason:cp, sob MEASUREMENTS -------- HEIGHT: 165.1 cm WEIGHT: 99.3 kg BP: 135/80 RVIDd: 3.0 cm (< 3.3) IVSd: 1.1 cm (0.6 - 1.1) LVIDd: 5.0 cm (3.9 - 5.3) LVPWd: 0.9 cm (0.6 - 1.1) IVSs: 1.2 cm LVIDs: 4.3 cm LVPWs: 1.3 cm LA Diam: 3.4 cm (2.7 - 3.8) Ao Diam: 2.5 cm (2.0 - 3.7) AV Cusp: 1.9 cm (1.5 - 2.6) LA Diam: 4.2 cm (2.7 - 3.8) MV EXCURSION: 18.048 mm (> 18.000) MV EF SLOPE: 120 mm/s (70 - 150) EPSS: 0.6 cm MV E Kike: 0.65 m/s MV DecT: 195 ms MV A Kike: 0.57 m/s MV E/A Ratio: 1.14 RAP: 5.00 mmHg RVSP: 24.79 mmHg FINDINGS -------- Sinus rhythm. This was a technically adequate study. LV size, wall thickness and systolic function are normal, with an EF greater than 55%. The left akhil tricular size is normal. The right ventricle is normal in size. The left atrial size is normal. The right atrial size is normal. The aortic valve is trileaflet, and appears structurally normal. No aortic stenosis or regurgitation. Mild mitral annular calcification present. Mild mitral regurgitation is present. Mild tricuspid regurgitation present. There is no evidence of pulmonary hypertension. The right v entricular systolic pressure, as measured by Doppler, is 24.79mmHg. There is no pulmonic regurgitation present. The aortic root size is normal. There is no pericardial effusion. CONCLUSIONS -------- 1. LV size, wall thickness and systolic function are normal, with an EF greater than 55%. 2. The left ventricular size is normal. 3. The right ventricle is normal in size. 4. The left atrial size is normal. 5. The right atrial size is normal. 6. The aortic valve is trileaflet, and appears structurally normal. No aortic stenosis or regurgitati on. 7. Mild mitral annular calcification present. 8. Mild mitral regurgitation is present. 9. Mild tricuspid regurgitation present. 10. There is no evidence of pulmonary hypertension. 11. The right ventricular systolic pressure, as measured by Doppler, is 24.79mmHg. 12. There is no pulmonic regurgitation present. 13. The aortic root size is normal. 14. There is no pericardial effusion. [employer] SALESPERSON: Samantha Veliz RDCS
[2018-05-18] MEDS ORDERED: lamoTRIgine 100 MG TAB PO SCH (21:00)
[2018-05-18] MEDS ORDERED: QUEtiapine 400 MG TAB PO SCH (21:00)
[2018-05-19] MEDS ORDERED: ASPIRIN 325 MG TAB PO SCH (09:00)
[2018-05-19] MEDS ORDERED: NALOXEGOL OXALATE PO SCH (09:00)
== END 2018-05-18 15:55 | disposition home or self-care (01) ==
LOC: EC 22:40 → 3OBS 05-18 00:32
PROVIDERS: ADMIT Internal Medicine Geriatric Medicine; ATTEND Internal Medicine Geriatric Medicine
DX: R07.89 Other chest pain (principal); J44.9 Chronic obstructive pulmonary disease, unspecified; I48.91 Unspecified atrial fibrillation; I25.10 Atherosclerotic heart disease of native coronary artery without angina pectoris; F03.90 Unspecified dementia, unspecified severity, without behavioral disturbance, psychotic disturbance, mood disturbance, and anxiety; M79.7 Fibromyalgia; E11.9 Type 2 diabetes mellitus without complications; K21.9 Gastro-esophageal reflux disease without esophagitis; E78.5 Hyperlipidemia, unspecified; I10 Essential (primary) hypertension; R41.3 Other amnesia; I25.2 Old myocardial infarction; G89.4 Chronic pain syndrome; D83.9 Common variable immunodeficiency, unspecified; M43.9 Deforming dorsopathy, unspecified; M32.9 Systemic lupus erythematosus, unspecified; M81.0 Age-related osteoporosis without current pathological fracture; F41.9 Anxiety disorder, unspecified; F31.9 Bipolar disorder, unspecified; F43.10 Post-traumatic stress disorder, unspecified; Z86.718 Personal history of other venous thrombosis and embolism; Z86.73 Personal history of transient ischemic attack (TIA), and cerebral infarction without residual deficits; Z87.19 Personal history of other diseases of the digestive system; Z86.14 Personal history of Methicillin resistant Staphylococcus aureus infection; Z79.899 Other long term (current) drug therapy; Z79.52 Long term (current) use of systemic steroids; Z79.51 Long term (current) use of inhaled steroids; Z88.8 Allergy status to other drugs, medicaments and biological substances; Z88.4 Allergy status to anesthetic agent; Z88.1 Allergy status to other antibiotic agents; Z91.012 Allergy to eggs; Z91.040 Latex allergy status; Z91.011 Allergy to milk products; Z88.5 Allergy status to narcotic agent; Z88.0 Allergy status to penicillin; Z88.2 Allergy status to sulfonamides; Z88.7 Allergy status to serum and vaccine; Z88.6 Allergy status to analgesic agent; Z91.048 Other nonmedicinal substance allergy status; G47.30 Sleep apnea, unspecified; Z99.89 Dependence on other enabling machines and devices; Z83.49 Family history of other endocrine, nutritional and metabolic diseases; E66.9 Obesity, unspecified; Z68.33 Body mass index [BMI] 33.0-33.9, adult
CPT/HCPCS: 99291 ×2; 96376 ×2; 96374 ×2; 99285; 36415; 94640; 93306; 83880; 80053; 82550 ×2; 82553 ×2; 83690; 83735; 84484 ×2; 85025; 85049; 85610; 85730 ×2; 71046; G0378; J1644 ×2; J7512

== ENCOUNTER 2018-05-20 14:03 | Emergency (ER) | payer MEDICARE ==
[2018-05-20] MEDS ORDERED: NITROGLYCERIN OINT 1 INCH/GM PACKET TOPICAL STA (14:54)
--- NOTE | 2018-05-20 14:58 | ED ---
General Adult HPI - General Source: patient, RN notes reviewed Mode of arrival: wheelchair Limitations: no limitations <Janusz Escalante - Last Filed: 05/20/18 16:12> <Janusz Masters - Last Filed: 05/20/18 18:08> - General Chief complaint: Chest Pain Stated complaint: SOB/Chest pain/Diarrhea Time Seen by Provider: 05/20/18 14:10 - History of Present Illness Initial comments: This is a 52-year-old female presents emergency Department complaining of chest pain. Patient states she's had intermittent chest pain over the last couple of weeks and nitroglycerin has helped relieve the pain. Patient states over the last few days she has gotten considerably worse she came into the hospital was admitted for one day but she states that she's been home she's been having severe episodes of chest pain and significant shortness of breath particularly with exertion. Patient states currently she is feeling little better but there still is some chest pain. Patient states it starts in the left side of her chest and radiates into her shoulder down her arm a little bit into her back. Patient denies any diaphoresis. Patient denies any nausea vomiting diarrhea. Patient denies any recent fever chills or cough. Patient denies any lightheadedness or dizziness. Patient denies any syncopal episode. Patient denies any abdominal pain patient denies nausea vomiting diarrhea. Patient denies any recent injury or trauma. (Janusz Escalante) - Related Data Home Medications Medication Instructions Recorded Confirmed Metoprolol Tartrate [Lopressor] 25 mg PO DAILY 01/09/14 05/17/18 predniSONE 10 mg PO DAILY 04/05/16 05/20/18 Baclofen 10 mg PO TID 06/21/16 05/20/18 Docusate [Colace] 100 mg PO DAILY PRN 06/21/16 05/20/18 Nitroglycerin Sl Tabs [Nitrostat] 0.4 mg PO Q5M PRN 06/21/16 05/20/18 lamoTRIgine [LaMICtal] 100 mg PO HS 06/21/16 05/20/18 Nystatin 100,000 Unit/ml Susp 4 ml PO QID 09/07/16 05/20/18 [Mycostatin Oral Susp] Albuterol Sulfate [Proventil Hfa] 1 - 2 puff INHALATION RT-Q6H PRN 12/07/1607/26 Beclomethasone Dip 80 Mcg/Puff 1 puff INHALATION DAILY 12/07/16 05/20/18 [Qvar 80 mcg] Ranitidine HCl [Zantac] 150 mg PO BID PRN 12/07/16 05/20/18 LORazepam [Ativan] 0.5 mg PO TID PRN 04/23/17 05/20/18 Citalopram Hydrobromide [CeleXA] 40 mg PO DAILY 05/17/18 05/20/18 diphenhydrAMINE [Benadryl] 50 mg PO DAILY PRN 05/17/18 05/20/18 Cetirizine HCl [Zyrtec] 10 mg PO DAILY 05/20/18 05/20/18 Fluticasone Nasal Lamont [Flonase 1 spray EA NOSTRIL DAILY 05/20/18 05/20/18 Nasal Lamont] Naproxen Sodium [Aleve] 220 mg PO DAILY PRN 05/20/18 05/20/18 predniSONE 5 mg PO DAILY 05/20/18 05/20/18 Previous Rx's Medication Instructions Recorded QUEtiapine [SEROquel] 400 mg PO HS tab 09/03/15 Allergies Allergy/AdvReac Type Severity Reaction Status Date / Time Anesthetics - Jocelyn Type- Allergy Unknown Verified 05/20/18 14:47 Parabens [Anesthetics - Jocelyn Type] bumetanide [From Bumex] Allergy Rash/Hives Verified 05/20/18 14:47 cephalexin [From Keflex] Allergy Rash/Hives Verified 05/20/18 14:47 Cephalosporins Allergy Rash/Hives Verified 05/20/18 14:47 clindamycin Allergy Rash/Hives Verified 05/20/18 14:47 diphenhydramine Allergy Rash/Hives Verified 05/20/18 14:47 [From Benadryl] doxycycline Allergy Anaphylaxis Verified 05/20/18 14:47 egg Allergy Anaphylaxis Verified 05/20/18 14:47 furosemide [From Lasix] Allergy Rash/Hives Verified 05/20/18 14:47 hydrochlorothiazide Allergy Rash/Hives Verified 05/20/18 14:47 influenza virus vaccine, Allergy Anaphylaxis Verified 05/20/18 14:47 specific [Influenza Virus Vacc,Specific] Latex, Natural Rubber Allergy Anaphylaxis Verified 05/20/18 14:47 levofloxacin [From Levaquin] Allergy Anaphylaxis Verified 05/20/18 14:47 NSAIDS (Non-Steroidal Allergy Rash/Hives Verified 05/20/18 14:47 Anti-Inflamma Penicillins Allergy Anaphylaxis Verified 05/20/18 14:47 pneumococcal 23-valent Allergy Anaphylaxis Verified 05/20/18 14:47 polysacchari [From Pneumovax 23] propoxyphene HCl Allergy Rash/Hives Verified 05/20/18 14:47 [From Darvon] Sulfa (Sulfonamide Allergy Anaphylaxis Verified 05/20/18 14:47 Antibiotics) torsemide [From Demadex] Allergy Rash/Hives Verified 05/20/18 14:47 tramadol HCl [From Ultram] Allergy Rash/Hives Verified 05/20/18 14:47 triamterene [From Dyazide] Allergy Anaphylaxis Verified 05/20/18 14:47 vancomycin Allergy Rash/Hives Verified 05/20/18 14:47 adhesive AdvReac Rash/Hives Verified 05/20/18 14:47 aspirin AdvReac Rash/Hives Verified 05/20/18 14:47 formoterol [Formoterol] AdvReac Unknown Verified 05/20/18 14:47 Macrolide Antibiotics AdvReac Nausea & Verified 05/20/18 14:47 Vomiting Milk Containing Products AdvReac Rash/Hives Verified 05/20/18 14:47 pregabalin [From Lyrica] AdvReac Hallucinati Verified 05/20/18 14:47 ons propofol AdvReac Unknown Verified 05/20/18 14:47 metals AdvReac Unknown Uncoded 05/20/18 14:11 Review of Systems ROS Other: All systems not noted in ROS Statement are negative. <Janusz Escalante - Last Filed: 05/20/18 16:12> ROS Other: All systems not noted in ROS Statement are negative. <Janusz Masters - Last Filed: 05/20/18 18:08> ROS Statement: Those systems with pertinent positive or pertinent negative responses have been documented in the HPI. Past Medical History Past Medical History: Atrial Fibrillation, Asthma, Chest Pain / Angina, COPD, CVA/TIA, Dementia, Diabetes Mellitus, Deep Vein Thrombosis (DVT), Eye Disorder, Fibromyalgia, GERD/Reflux, GI Bleed, Hyperlipidemia, Hypertension, Memory Impairment, Myocardial Infarction ([place]), Neurologic Disorder, Skin Disorder, Sleep Apnea/CPAP/BIPAP, Syncope, Vascular Disorder Additional Past Medical History / Comment(s): VERTIBRAL FX T-12/L1-L5/ILIAC FX BILAT PARTIALLY HEALED/VASCULITIS/IRRITABLE BOWEL SYNDROME/CELLULITIS TO ARMS, Lupus, BILATERAL CATARACTS 2014 LEFT SHOULDER AVASCULOAR NECROSIS, osteoporois , CVID ON IVIG infusions, osteomyelitis L1. Aseptic necrosis - right femoral head Brain lesion and old bleed MRI - Winter 2016. FUNGAL FOOT NAILBED INFECTION. TOOTH INFECTION AND VAGINAL YEAST INFECTION. Last Myocardial Infarction Date:: 1989 History of Any Multi-Drug Resistant Organisms: MRSA, VRE Date of last positivie culture/infection: 01/28/16 MDRO Source:: URINE Past Surgical History: Adenoidectomy, Ear Surgery, Heart Catheterization, Hernia Repair, Orthopedic Surgery, Tonsillectomy Additional Past Surgical History / Comment(s): NIYAH FILTER. SINUS SURGERY , right breast bx - benign Past Anesthesia/Blood Transfusion Reactions: Motion Sickness, Postoperative Nausea & Vomiting (PONV) Past Psychological History: Anxiety, Bipolar, Depression, PTSD Smoking Status: Never smoker Past Alcohol Use History: None Reported Past Drug Use History: Prescription Drug Abuse - Past Family History Mother Family Medical History: Hypertension, Thyroid Disorder Father Family Medical History: Myocardial Infarction ([place]) Additional Family Medical History / Comment(s): significant other states father of heart attack, and had other heart problems <Janusz Escalante - Last Filed: 05/20/18 16:12> General Exam Limitations: no limitations <Janusz Escalante - Last Filed: 05/20/18 16:12> <Janusz Masters - Last Filed: 05/20/18 18:08> - General Exam Comments Initial Comments: GENERAL: Patient is well-developed and well-nourished. Patient is nontoxic and well- hydrated and is in mild distress. ENT: Neck is soft and supple. No significant lymphadenopathy is noted. Oropharynx is clear. Moist mucous membranes. Neck has full range of motion without eliciting any pain. EYES: The sclera were anicteric and conjunctiva were pink and moist. Extraocular movements were intact and pupils were equal round and reactive to light. Eyelids were unremarkable. PULMONARY: Unlabored respirations. Good breath sounds bilaterally. No audible rales rhonchi or wheezing was noted. CARDIOVASCULAR: There is a regular rate and rhythm without any murmurs gallops or rubs. ABDOMEN: Soft and nontender with normal bowel sounds. No palpable organomegaly was noted. There is no palpable pulsatile mass. SKIN: Skin is clear with no lesions or rashes and otherwise unremarkable. NEUROLOGIC: Patient is alert and oriented x3. Cranial nerves II through XII are grossly intact. Motor and sensory are also intact. Normal speech, volume and content. Symmetrical smile. MUSCULOSKELETAL: Normal extremities with adequate strength and full range of motion. No lower extremity swelling or edema. No calf tenderness. LYMPHATICS: No significant lymphadenopathy is noted PSYCHIATRIC: Patient appears very anxious (Janusz Escalante) Course <Janusz Escalante - Last Filed: 05/20/18 16:12> <Janusz Masters - Last Filed: 05/20/18 18:08> Vital Signs 05/20/18 05/20/18 14:08 15:17 Temperature 98.2 F Pulse Rate 78 76 Respiratory 20 18 Rate Blood Pressure 148/100 139/89 O2 Sat by Pulse 100 95 Oximetry - Reevaluation(s) Reevaluation #1: 05/20/18 18:07 Medical records thoroughly reviewed including recent ER visit and inpatient hospitalization (Janusz Masters) Reevaluation #2: 05/20/18 18:07 Patient reevaluated by myself here in the emergency room, patient states she feels well feels like her reflux is acting up feels nauseous but has no chest pain or shortness of breath (Janusz Masters) Reevaluation #3: 05/20/18 18:07 Patient discussed at length regarding reason for admission versus discharge. Patient states he feels comfortable currently like to be discharged home, follow -up as an outpatient (Janusz Masters) Medical Decision Making - Lab Data Result diagrams: 05/20/18 15:06 05/20/18 15:06 <Janusz Escalante - Last Filed: 05/20/18 16:12> - Lab Data Result diagrams: 05/20/18 15:06 05/20/18 15:06 - Radiology Data Radiology results: report reviewed (CTA chest is negative for acute disease), image reviewed <Janusz Masters - Last Filed: 05/20/18 18:08> - Medical Decision Making EKG shows normal sinus rhythm at 60 bpm WV interval is on a 54 QRS is 88 QT interval 432 QTC is 459. Patient's EKG shows no ST segment elevation or depression or T wave abnormalities are noted. Dr. Masters be taking over the care of this patient at 5 PM (Janusz Escalante) 52 female the ER for evaluation, he didn't exhibit medical history, patient coming in with chest pain nausea episode of vomiting, symptoms pretty much abated throughout ER stay, does have recent hospital admission for similar episode turned out not to have specific cause found. Patient states she has history of viral hernia concern maybe that. No active vomiting no shortness of breath no chest pain. Patient can be discharged home (Janusz Masters) - Lab Data Lab Results 05/20/18 05/20/18 05/20/18 Range/Units 15:06 15:06 15:06 WBC 11.7 H (3.8-10.6) k/uL RBC 4.87 (3.80-5.40) m/uL Hgb 14.2 (11.4-16.0) gm/dL Hct 44.6 (34.0-46.0) % MCV 91.5 (80.0-100.0) fL MCH 29.1 (25.0-35.0) pg MCHC 31.8 (31.0-37.0) g/dL RDW 14.4 (11.5-15.5) % Plt Count 307 (150-450) k/uL Neutrophils % 80 % Lymphocytes % 13 % Monocytes % 4 % Eosinophils % 1 % Basophils % 0 % Neutrophils # 9.4 H (1.3-7.7) k/uL Lymphocytes # 1.6 (1.0-4.8) k/uL Monocytes # 0.5 (0-1.0) k/uL Eosinophils # 0.1 (0-0.7) k/uL Basophils # 0.0 (0-0.2) k/uL PT (9.0-12.0) sec INR (<1.2) APTT (22.0-30.0) sec D-Dimer (<0.60) mg/L FEU Sodium 139 (137-145) mmol/L Potassium 4.6 (3.5-5.1) mmol/L Chloride 108 H (98-107) mmol/L Carbon Dioxide 21 L (22-30) mmol/L Anion Gap 10 mmol/L BUN 11 (7-17) mg/dL Creatinine 0.66 (0.52-1.04) mg/dL Est GFR (CKD-EPI)AfAm >90 (>60 ml/min/1.73 sqM) Est GFR (CKD-EPI)NonAf >90 (>60 ml/min/1.73 sqM) Glucose 124 H (74-99) mg/dL Calcium 9.1 (8.4-10.2) mg/dL Magnesium 2.2 (1.6-2.3) mg/dL Total Bilirubin 0.2 (0.2-1.3) mg/dL AST 46 H (14-36) U/L ALT 43 (9-52) U/L Alkaline Phosphatase 93 (38-126) U/L Total Creatine Kinase 140 H (30-135) U/L CK-MB (CK-2) 2.4 (0.0-2.4) ng/mL CK-MB (CK-2) Rel Index 1.7 Troponin I <0.012 (0.000-0.034) ng/mL NT-Pro-B Natriuret Pep pg/mL Total Protein 6.8 (6.3-8.2) g/dL Albumin 3.9 (3.5-5.0) g/dL 05/20/18 05/20/18 Range/Units 15:06 15:06 WBC (3.8-10.6) k/uL RBC (3.80-5.40) m/uL Hgb (11.4-16.0) gm/dL Hct (34.0-46.0) % MCV (80.0-100.0) fL MCH (25.0-35.0) pg MCHC (31.0-37.0) g/dL RDW (11.5-15.5) % Plt Count (150-450) k/uL Neutrophils % % Lymphocytes % % Monocytes % % Eosinophils % % Basophils % % Neutrophils # (1.3-7.7) k/uL Lymphocytes # (1.0-4.8) k/uL Monocytes # (0-1.0) k/uL Eosinophils # (0-0.7) k/uL Basophils # (0-0.2) k/uL PT 9.7 (9.0-12.0) sec INR 1.0 (<1.2) APTT 23.9 (22.0-30.0) sec D-Dimer 0.71 H (<0.60) mg/L FEU Sodium (137-145) mmol/L Potassium (3.5-5.1) mmol/L Chloride (98-107) mmol/L Carbon Dioxide (22-30) mmol/L Anion Gap mmol/L BUN (7-17) mg/dL Creatinine (0.52-1.04) mg/dL Est GFR (CKD-EPI)AfAm (>60 ml/min/1.73 sqM) Est GFR (CKD-EPI)NonAf (>60 ml/min/1.73 sqM) Glucose (74-99) mg/dL Calcium (8.4-10.2) mg/dL Magnesium (1.6-2.3) mg/dL Total Bilirubin (0.2-1.3) mg/dL AST (14-36) U/L ALT (9-52) U/L Alkaline Phosphatase (38-126) U/L Total Creatine Kinase (30-135) U/L CK-MB (CK-2) (0.0-2.4) ng/mL CK-MB (CK-2) Rel Index Troponin I (0.000-0.034) ng/mL NT-Pro-B Natriuret Pep 155 pg/mL Total Protein (6.3-8.2) g/dL Albumin (3.5-5.0) g/dL Disposition <Janusz Escalante - Last Filed: 05/20/18 16:12> Is patient prescribed a controlled substance at d/c from ED?: No <Janusz Masters - Last Filed: 05/20/18 18:08> Clinical Impression: Chest pain, Hiatal hernia, GERD (gastroesophageal reflux disease) Disposition: HOME SELF-CARE Condition: Good Instructions: Chest Pain (ED) Referrals: Eulalio Acosta MD [Primary Care Provider] - 1-2 days Yadiel King MD [STAFF PHYSICIAN] - 1-2 days Sudhakar Sevilla MD [STAFF PHYSICIAN] - 1-2 days
[2018-05-20 15:21] LABS: Basophils % (A) 0 %; Eosinophils # (A) 0.1 k/uL (0-0.7); Eosinophils % (A) 1 %; HCT 44.6 % (34.0-46.0); HGB 14.2 gm/dL (11.4-16.0); Lymphocytes # (A) 1.6 k/uL (1.0-4.8); Lymphocytes % (A) 13 %; MCH 29.1 pg (25.0-35.0); MCHC 31.8 g/dL (31.0-37.0); MCV 91.5 fL (80.0-100.0); Monocytes # (A) 0.5 k/uL (0-1.0); Monocytes % (A) 4 %; Neutrophils # (A) 9.4 k/uL (1.3-7.7); Neutrophils % (A) 80 %; Platelet Count 307 k/uL (150-450); RBC 4.87 m/uL (3.80-5.40); RDW 14.4 % (11.5-15.5); WBC 11.7 k/uL (3.8-10.6)
[2018-05-20 15:22] VITALS: RESP 18
[2018-05-20 15:36] LABS: Partial Thromboplastin Time 23.9 sec (22.0-30.0); Prothrombin Time 9.7 sec (9.0-12.0)
[2018-05-20 15:40] LABS: Creatine Kinase 140 U/L (30-135)
[2018-05-20 15:43] LABS: ALT 43 U/L (9-52); AST 46 U/L (14-36); Albumin 3.9 g/dL (3.5-5.0); Alkaline Phosphatase 93 U/L (38-126); Anion Gap 10 mmol/L; Blood Urea Nitrogen 11 mg/dL (7-17); Calcium 9.1 mg/dL (8.4-10.2); Carbon Dioxide 21 mmol/L (22-30); Chloride 108 mmol/L (98-107); Glucose 124 mg/dL (74-99); Magnesium 2.2 mg/dL (1.6-2.3); Potassium 4.6 mmol/L (3.5-5.1); Sodium 139 mmol/L (137-145); Total Bilirubin 0.2 mg/dL (0.2-1.3); Total Protein 6.8 g/dL (6.3-8.2)
[2018-05-20 15:47] LABS: D-Dimer 0.71 mg/L FEU (<0.60)
--- NOTE | 2018-05-20 15:53 | XR ---
EXAMINATION TYPE: XR chest 2V DATE OF EXAM: 05/20/2018 COMPARISON: Chest x-ray from 3 days ago HISTORY: Cough and chest pain for 3 days. TECHNIQUE: Frontal and lateral views of the chest are obtained. FINDINGS: There is no focal air space opacity, pleural effusion, or pneumothorax seen. The cardiac silhouette size stable and upper limits of normal. Dextroconvex scoliosis centered in the mid thoraci c spine is present. IMPRESSION: No suspicious acute infiltrate. No significant change from prior.
[2018-05-20 15:54] LABS: Creatine Kinase MB 2.4 ng/mL (0.0-2.4); Troponin I <0.012 ng/mL (0.000-0.034)
--- NOTE | 2018-05-20 16:53 | CT ---
EXAMINATION TYPE: CT chest angio for PE DATE OF EXAM: 05/20/2018 COMPARISON: None HISTORY: Shortness of breath, chest and left shoulder pain. CT DLP: 666.4 mGycm Automated exposure control for dose reduction was used. CONTRAST: CT Chest for pulmonary embolism performed with with IV Contrast, patient injected with 100ml mL of Is ovue 370. FINDINGS: There are 3-D post processed images. There is no pleural effusion. There is minimal reticular linear density in the medial posterior segme nt right upper lobe adjacent to the mediastinum. There is no evidence of a pulmonary mass. There is n o mediastinal adenopathy. Thoracic aorta shows mild atheromatous change. There is no evidence of aneu rysm or dissection. There is no pericardial effusion. There is normal contrast opacification of the pulmonary arteries. I see no filling defect. There is compression fractures in the thoracic and lumbar spine these involve L1 T12 T11 T9 T4 and T5. These appear not significantly different than old CT scan 08/23/2015. There is 5 cm cyst in the superior right lobe of the liver. This is significantly increased in size compare d to 08/23/2015 CT abdomen. This has density of 1. IMPRESSION: No evidence of pulmonary embolism.
[2018-05-20] MEDS ORDERED: MAG HYDROX/AL HYDROX/SIMETH 30 ML, HYOSCYAMINE ELIXIR 10 ML, CIMETIDINE HCL 300 MG PO STA ×3 (18:05)
[2018-05-20] MEDS: PANTOPRAZOLE 40 MG/10 ML VIAL IVP STA ×2 (18:23→18:26)
[2018-05-20] MEDS: FAMOTIDINE 20 MG/2 ML VIAL IV STA ×2 (18:23→18:25)
[2018-05-20 18:35] VITALS: BP 141/85; PULSE 67; TEMP 98.6
== END 2018-05-20 18:35 | disposition home or self-care (01) ==
LOC: EC 14:03
DX: K21.9 Gastro-esophageal reflux disease without esophagitis (principal); K44.9 Diaphragmatic hernia without obstruction or gangrene; I48.91 Unspecified atrial fibrillation; J44.9 Chronic obstructive pulmonary disease, unspecified; I10 Essential (primary) hypertension; I25.2 Old myocardial infarction; G47.30 Sleep apnea, unspecified; F31.9 Bipolar disorder, unspecified; F41.9 Anxiety disorder, unspecified; Z79.51 Long term (current) use of inhaled steroids; Z79.899 Other long term (current) drug therapy; Z79.1 Long term (current) use of non-steroidal anti-inflammatories (NSAID); Z88.1 Allergy status to other antibiotic agents; Z88.4 Allergy status to anesthetic agent; Z88.8 Allergy status to other drugs, medicaments and biological substances; Z91.012 Allergy to eggs; Z88.7 Allergy status to serum and vaccine; Z91.040 Latex allergy status; Z88.6 Allergy status to analgesic agent; Z88.0 Allergy status to penicillin; Z88.5 Allergy status to narcotic agent; Z88.2 Allergy status to sulfonamides; Z91.048 Other nonmedicinal substance allergy status; Z91.011 Allergy to milk products; Z86.718 Personal history of other venous thrombosis and embolism; Z86.73 Personal history of transient ischemic attack (TIA), and cerebral infarction without residual deficits
CPT/HCPCS: 36415; 93005; 85379; 83880; 80053; 82550; 82553; 83735; 84484; 85025; 85610; 85730; 71046; 71275; 99285; Q9967

== ENCOUNTER → 2018-05-23 | Outpatient (CLI) | payer MEDICARE ==
[2018-05-23 13:57] LABS: ALT 27 U/L (9-52); AST 26 U/L (14-36); Albumin 3.7 g/dL (3.5-5.0); Alkaline Phosphatase 83 U/L (38-126); Anion Gap 9 mmol/L; Blood Urea Nitrogen 20 mg/dL (7-17); Calcium 9.1 mg/dL (8.4-10.2); Carbon Dioxide 27 mmol/L (22-30); Chloride 104 mmol/L (98-107); Glucose 170 mg/dL (74-99); Potassium 4.9 mmol/L (3.5-5.1); Sodium 140 mmol/L (137-145); Total Bilirubin 0.3 mg/dL (0.2-1.3); Total Protein 6.6 g/dL (6.3-8.2)
[2018-05-23 14:07] LABS: T4, Free (Free Thyroxine) 0.88 ng/dL (0.78-2.19)
[2018-05-23 19:05] LABS: Parathyroid Hormone Intact 51.7 pg/mL (14.0-72.0)
[2018-05-23 19:33] LABS: Vitamin D 25 Hydroxy 24.4 ng/mL (30.0-100.0)
== END | disposition home or self-care (01) ==
LOC: LABWHC1 12:10
PROVIDERS: ATTEND Internal Medicine
DX: E55.9 Vitamin D deficiency, unspecified (principal); M81.0 Age-related osteoporosis without current pathological fracture; R94.6 Abnormal results of thyroid function studies; E04.2 Nontoxic multinodular goiter
CPT/HCPCS: 36415; 80053; 82306; 83970; 84439; 84443; 84481

== ENCOUNTER → 2018-11-10 | Outpatient (CLI) | payer MEDICARE ==
--- NOTE | 2018-11-11 12:26 | MM ---
Reason for exam: screening (asymptomatic). Last mammogram was performed 3 years and 11 months ago. History: Patient is postmenopausal and is nulliparous. Family history of premenopausal breast cancer in grandmother. Excisional biopsy of the right breast, February 04, 2007. Took hormonal contraceptives for 19 years beginning at age 16. Physical Findings: A clinical breast exam by your physician is recommended on an annual basis and results should be correlated with mammographic findings. MG 3D Screening Mammo W/Cad Bilateral CC and MLO view(s) were taken. Prior study comparison: December 21, 2014, bilateral MG screening mammo w CAD. October 16, 2013, [facility] DIGITAL RIGHT MAMMOGRAM w/CAD. No significant changes when compared with prior studies. ASSESSMENT: Benign, BI-RAD 2 RECOMMENDATION: Routine screening mammogram of both breasts in 1 year.
== END | disposition home or self-care (01) ==
LOC: RADMAMWWP 11:02
PROVIDERS: ATTEND Internal Medicine
DX: Z12.31 Encounter for screening mammogram for malignant neoplasm of breast (principal)
CPT/HCPCS: 77063; 77067

== ENCOUNTER → 2019-07-19 | Outpatient (CLI) | payer MEDICARE ==
[~2019-07-19] MED LIST: SODIUM CHLORIDE 0.9% 500 ML 500 ML in EMPTY BAG 1 BAG IV PRN; ZOLEDRONIC ACID 5 MG in SODIUM CHLORIDE 0.9% 100 ML IV NR
[2019-07-19 12:31] VITALS: BP 106/71; PULSE 65; RESP 16; TEMP 97.8
[2019-07-19 13:12] LABS: African American GFR (CKD) >90 (>60 ml/min/1.73 sqM); Anion Gap 8 mmol/L; Blood Urea Nitrogen 14 mg/dL (7-17); Calcium 9.3 mg/dL (8.4-10.2); Carbon Dioxide 25 mmol/L (22-30); Chloride 105 mmol/L (98-107); Cholesterol 244 mg/dL (<200); Glucose 181 mg/dL (74-99); HDL Cholesterol 31 mg/dL (40-60); LDL Cholesterol,Calculated 135 mg/dL (0-99); Non-African American GFR(CKD) >90 (>60 ml/min/1.73 sqM); Sodium 138 mmol/L (137-145); Triglycerides 391 mg/dL (<150)
[2019-07-19 13:14] LABS: Appearance,Urine Clear (Clear); Bilirubin,Urine Negative (Negative); Blood,Urine Negative (Negative); Color,Urine Yellow; Glucose,Urine (UA) Negative (Negative); Ketones,Urine Negative (Negative); Leukocyte Esterase,Urine Negative (Negative); Nitrite,Urine Negative (Negative); Protein,Urine Negative (Negative); Specific Gravity,Urine 1.016 (1.001-1.035); Urobilinogen,Urine <2.0 mg/dL (<2.0)
[2019-07-19 19:24] LABS: Hemoglobin A1C 5.8 % (4.0-6.0)
[2019-07-20 11:58] LABS: Protein/Creatinine Ratio,Urine 0.1
== END | disposition home or self-care (01) ==
LOC: PROCWHC3 11:29
PROVIDERS: ATTEND Internal Medicine
DX: M81.0 Age-related osteoporosis without current pathological fracture (principal)
CPT/HCPCS: 36415; 80048; 80061; 81003; 82306; 82570; 83036; 84156; 84439; 84443; 96365

== ENCOUNTER → 2019-07-19 | Outpatient (CLI) | payer MEDICARE ==
--- NOTE | 2019-07-19 14:42 | US ---
EXAMINATION TYPE: US thyroid st tissue head/neck DATE OF EXAM: 07/19/2019 COMPARISON: US 03/09/2017 CLINICAL HISTORY: E04.2 Multinodular goiter. Followup GLAND SIZE: Right Lobe: 5.7 x 3.5 x 2.6 cm Overall Parenchyma: homogenous Left Lobe: 5.0 x 1.9 x 1.4 cm Overall Parenchyma: homogeneous Isthmus Thickness: 0.4 cm NODULES RIGHT: # of nodules measured on right: 2 1. 3.7 X 3.5 x 2.6 cm hypoechoic mixed nodule at the mid/lower pole with well-defined margins. Thi s nodule is wider than tall and shows intranodular vascularity. Prior size: 3.7 x 2.4 x 2.0 cm 2. 2.2 X 1.5 x 1.1 cm isoechoic mixed nodule at the lower medial pole/isthmus with well-defined chon ins. This nodule is wider than tall and shows intranodular vascularity. Prior size: not previously noted LEFT: # of nodules measured on left: 2 largest of multiple 1. 1.2 X 0.8 x 0.7 cm hypoechoic mixed nodule at the mid medial pole with well-defined margins. Th is nodule is wider than tall and shows no intranodular vascularity. Prior size: 0.7 x 0.7 x 0.6 cm 2. 0.8 X 0.8 x 0.5 cm hypoechoic mixed nodule at the lower pole with irregular margins. This nodule is wider than tall and shows no intranodular vascularity. Prior size: 0.7 x 0.6 x 0.6 cm ISTHMUS: # of nodules measured in the isthmus: 0 Bilateral neck scanned: no evidence of lymphadenopathy. IMPRESSION: 1. New 2.2 cm medial right thyroid nodule near the isthmus. Fine-needle aspiration could be considere d given the size of this new finding. 2. Slight interval growth of the 3.7 cm right thyroid nodule comparison 2017. 3. Slight interval growth of the 1.2 cm left thyroid nodule. 4. Overall similar size of the smaller left thyroid nodule.
== END | disposition home or self-care (01) ==
LOC: RADUSWWP 13:04
PROVIDERS: ATTEND Internal Medicine
DX: E04.2 Nontoxic multinodular goiter (principal)
CPT/HCPCS: 76536